=== PATIENT | male | born 1940 | race Caucasian/White ===

== ENCOUNTER 2016-06-07 10:37 | Observation (INO) | payer MEDICARE, OTHER ==
[2016-06-07 10:37] VITALS: BMI 24.2
[2016-06-07] MEDS ORDERED: Sodium Chloride 0.9% 1,000 ML IV STA (10:56)
--- NOTE | 2016-06-07 10:58 | C.PDOC ---
History Of Present Illness 76 y/o M c PMHx DM, HTN p/w diarrhea x 3 days. He reports a small amount of vomit once yesterday. He denies fever, chills, chest pain, palpitations, dyspnea , dizziness, abdominal pain, bleeding, dysuria. Time Seen by Provider: 06/07/16 10:50 Chief Complaint (Nursing): Abdominal Pain Past Medical History Vital Signs: Last Vital Signs Temp 97.9 F 06/07/16 10:43 Pulse 117 H 06/07/16 10:43 Resp 18 06/07/16 10:43 BP 161/87 H 06/07/16 10:43 Pulse Ox 96 06/07/16 12:03 - Medical History PMH: Anxiety, Arthritis, Asthma, COPD, Diabetes, Emphysema, Gastritis, HTN Denies: Chronic Kidney Disease - [facility] Procedures ASSISTANCE WITH RESPIRATORY VENTILATION, 24-96 HRS, CPAP (02/13/15) CORONAR ARTERIOGR-2 CATH (06/08/14) INSERTION OF ONE VASCULAR STENT (06/08/14) INSRT OF DRUG-ELUTING CORON ARTERY STENTS(S) (06/08/14) LEFT HEART CARDIAC CATH (06/08/14) LT HEART ANGIOCARDIOGRAM (06/08/14) NON-INVASIVE MECHANICAL VENTILATION (06/07/14) PERCUTANEOUS TRANSLUMINAL CORONARY ANGIOPLASTY [PTCA] (06/08/14) PROCEDURE ON SINGLE VESSEL (06/08/14) Family History: States: Unknown Family Hx - Social History Hx Tobacco Use: No Hx Alcohol Use: Yes (SOCIALLY) Hx Substance Use: No - Immunization History Hx Tetanus Toxoid Vaccination: No Hx Influenza Vaccination: Yes Hx Pneumococcal Vaccination: Yes Review Of Systems Except As Marked, All Systems Reviewed And Found Negative. Constitutional: Negative for: Fever Cardiovascular: Negative for: Chest Pain Physical Exam - Physical Exam Additional Physical Exam Comments: Constitutional: No acute distress. Head: Normocephalic. Atraumatic. Eyes: PERRL. ENT: Dry mucous membranes. Neck: Supple. Cardiovascular: Tachycardic. Radial pulse 2+ bilaterally. Chest: No tenderness. Respiratory: Clear to auscultation bilaterally. GI: Soft. Nontender. Nondistended. Back: No CVA tenderness. Musculoskeletal: No tenderness or swelling of extremities. Skin: No rash. Neurologic: Alert, no focal deficit. ED Course And Treatment - Laboratory Results Result Diagrams: 06/07/16 11:17 06/07/16 11:17 O2 Sat by Pulse Oximetry: 96 Medical Decision Making Medical Decision Making: Will check labs for dehydration or leukocytosis. Will treat with IVF as patient is tachycardic. No history of CHF. Will administer Zofran for nausea/vomiting. Reassessment after treatment. No abdominal pain and no abdominal tenderness. EKG: Sinus tachycardia at [address] elevation. No acute changes. PROCEDURE: CT Abdomen and Pelvis with intravenous contrast HISTORY: diarrhea COMPARISON: None. TECHNIQUE: Axial computed tomographic images were performed through the abdomen and pelvis with the use of intravenous contrast. Subsequently, sagittal and coronal reformatted images were obtained. Radiation dose: Total exam DLP = 767 mGy-cm. This CT exam was performed using one or more of the following dose reduction techniques: Automated exposure control, adjustment of the mA and/or kV according to patient size, and/or use of iterative reconstruction technique. FINDINGS: LOWER THORAX: Atelectasis at the lung bases. Mild nodularity in the lingula. LIVER: Fatty infiltration of the liver. GALLBLADDER AND BILE DUCTS: Distended gallbladder. PANCREAS: Unremarkable. No gross lesion or ductal dilatation. SPLEEN: Unremarkable. ADRENALS: Unremarkable. No mass. KIDNEYS AND URETERS: Unremarkable. No hydronephrosis. No solid mass. VASCULATURE: Unremarkable. No aortic aneurysm. BOWEL: Underdistention and or mild thickening of the stomach. Diffuse mild thickening throughout the colon concerning for a colitis. Clinical correlation. Prominent diverticuli noted at the level of the descending and sigmoid colon. APPENDIX: Mild likely reactive thickening at the proximal appendix. PERITONEUM: Unremarkable. No free fluid. No free air. LYMPH NODES: Unremarkable. No enlarged lymph nodes. BLADDER: Mild nodularity of the anterior midline aspect of the urinary bladder. REPRODUCTIVE: Unremarkable. BONES: Degenerative changes the spine. Prominent posterior disc osteophyte complex at the L4-5 level. OTHER FINDINGS: Calcification and plaque within the aorta and iliac vessels. IMPRESSION: Diffuse mild thickening throughout the colon concerning for a colitis. Clinical correlation. Prominent diverticuli noted at the level of the descending and sigmoid colon. Additional findings as above. Will start patient on cipro and flagyl. HR improved to 101 but still tachycardic with evidence of dehydration. Dr. Marshall accepts patient to observation on medicine construction electrician service. Disposition Discussed With : Micha Marshall Doctor Will See Patient In The: Hospital - Disposition Disposition: HOSPITALIZED Disposition Time: 13:36 Condition: FAIR - Clinical Impression Clinical Impression: Colitis, Dehydration
[2016-06-07] MEDS ORDERED: Sodium Chloride 0.9% 1,000 ML ONE (11:14)
[2016-06-07 11:24] LABS: BASO % 0.3 % (0.0-2.0); EOS # 0.2 K/uL (0.0-0.7); EOS % 1.4 % (0.0-4.0); HEMATOCRIT 41.3 % (35.0-51.0); LYMPH # 1.7 K/uL (1.0-4.3); LYMPH % 13.1 % (20.0-40.0); MEAN CELL VOLUME 91.2 fL (80.0-94.0); MEAN CORPUSCULAR HEMOGLOBIN 30.1 pg (27.0-31.0); MEAN PLATELET VOLUME 8.8 fL (7.2-11.7); MONO # 1.7 K/uL (0.0-0.8); MONO % 13.1 % (0.0-10.0); RED CELL DISTRIBUTION WIDTH 14.6 % (11.5-14.5); WHITE BLOOD COUNT 12.6 K/uL (4.8-10.8)
[2016-06-07 11:34] LABS: RBC URINE < 1 /hpf (0-3); URINE BILIRUBIN NEGATIVE (NEGATIVE); URINE BLOOD NEGATIVE (NEGATIVE); URINE COLOR Yellow (YELLOW); URINE GLUCOSE (UA) NORMAL (Normal); URINE KETONE 1+ mg/dL (NEGATIVE); URINE LEUKOCYTE ESTERASE NEG Leu/uL (Negative); URINE PROTEIN NEGATIVE (NEGATIVE); URINE UROBILINOGEN NORMAL mg/dL (0.2-1.0); WBC URINE 1 /hpf (0-5)
[2016-06-07 11:39] LABS: CHLORIDE 102 mmol/L (98-107); POTASSIUM 3.7 mmol/L (3.6-5.2); SODIUM 135 mmol/L (132-148)
[2016-06-07 11:41] LABS: ALB/GLOB RATIO 1.4 (1.0-2.1); ALKALINE PHOSPHATASE 151 U/L (38-126); AST/SGOT 26 U/L (17-59); BILIRUBIN,TOTAL 1.1 mg/dL (0.2-1.3); BLOOD UREA NITROGEN 17 mg/dL (9-20); CARBON DIOXIDE 20 mmol/L (22-30); GFR AFRICAN-AMERICAN > 60; TOTAL PROTEIN 6.6 g/dL (6.3-8.3)
[2016-06-07 11:42] LABS: ALT/SGPT 25 U/L (21-72); CALCIUM 8.8 mg/dl (8.6-10.4); GLUCOSE,RANDOM 174 mg/dL (75-110)
[2016-06-07] MEDS ORDERED: Iodixanol 320 MG/ML 100 ML BOTTLE IV ONE (12:02)
--- NOTE | 2016-06-07 13:28 | CT ---
PROCEDURE: CT Abdomen and Pelvis with intravenous contrast HISTORY: diarrhea, vomiting COMPARISON: None. TECHNIQUE: Axial computed tomographic images were performed through the abdomen and pelvis with the use of intravenous contrast. Subsequently, sagittal and coronal reformatted images were obtained. Radiation dose: Total exam DLP = 767 mGy-cm. This CT exam was performed using one or more of the following dose reduction techniques: Automated exposure control, adjustment of the mA and/or kV according to patient size, and/or use of iterative reconstruction technique. FINDINGS: LOWER THORAX: Atelectasis at the lung bases. Mild nodularity in the lingula. LIVER: Fatty infiltration of the liver. GALLBLADDER AND BILE DUCTS: Distended gallbladder. PANCREAS: Unremarkable. No gross lesion or ductal dilatation. SPLEEN: Unremarkable. ADRENALS: Unremarkable. No mass. KIDNEYS AND URETERS: Unremarkable. No hydronephrosis. No solid mass. VASCULATURE: Unremarkable. No aortic aneurysm. BOWEL: Underdistention and or mild thickening of the stomach. Diffuse mild thickening throughout the colon concerning for a colitis. Clinical correlation. Prominent diverticuli noted at the level of the descending and sigmoid colon. APPENDIX: Mild likely reactive thickening at the proximal appendix. PERITONEUM: Unremarkable. No free fluid. No free air. LYMPH NODES: Unremarkable. No enlarged lymph nodes. BLADDER: Mild nodularity of the anterior midline aspect of the urinary bladder. REPRODUCTIVE: Unremarkable. BONES: Degenerative changes the spine. Prominent posterior disc osteophyte complex at the L4-5 level. OTHER FINDINGS: Calcification and plaque within the aorta and iliac vessels. IMPRESSION: Diffuse mild thickening throughout the colon concerning for a colitis. Clinical correlation. Prominent diverticuli noted at the level of the descending and sigmoid colon. Additional findings as above.
[2016-06-07] MEDS ORDERED: metroNIDAZOLE IV 500 mg/100 ml 100 ML IVPB STA (13:40)
[2016-06-07] MEDS ORDERED: Ciprofloxacin 400mg/200ml D5W 200 ML IVPB STA (13:40)
[2016-06-07] MEDS ORDERED: Ciprofloxacin 400mg/200ml D5W 200 ML IVPB ONE (14:48)
[2016-06-07] MEDS ORDERED: metroNIDAZOLE IV 500 mg/100 ml 100 ML ONE (14:49)
[2016-06-07] MEDS ORDERED: Ciprofloxacin 400mg/200ml D5W 200 ML IVPB SCH (15:00)
--- NOTE | 2016-06-07 15:00 | CP.PCM.HP ---
History of Present Illness - History of Present Illness History of Present Illness: 76 year old male with past medical histories of diabetes mellitus, hypertension present with diarrhea since 3 days. he reports a small amount of vomiting once yesterday. He denies fever, chills, chest pain, palpitations, dyspnea, dizziness, abdominal pain, bleeding, dysuria Present on Admission - Present on Admission Any Indicators Present on Admission: No Past Patient History - Infectious Disease Hx of Infectious Diseases: None - Tetanus Immunizations Tetanus Immunization: Unknown - Past Medical History & Family History Past Medical History?: Yes - Past Social History Smoking Status: Former Smoker - CARDIAC Hx Hypertension: Yes - PULMONARY Hx Asthma: Yes Hx Chronic Obstructive Pulmonary Disease (COPD): Yes Hx Emphysema: Yes - NEUROLOGICAL Hx Neurological Disorder: No - HEENT Hx HEENT Problems: No - RENAL Hx Chronic Kidney Disease: No - ENDOCRINE/METABOLIC Hx Endocrine Disorders: Yes Hx Diabetes Mellitus Type 1: Yes - HEMATOLOGICAL/ONCOLOGICAL Hx Blood Disorders: No - INTEGUMENTARY Hx Dermatological Problems: No - MUSCULOSKELETAL/RHEUMATOLOGICAL Hx Arthritis: Yes - GASTROINTESTINAL Hx Gastritis: Yes - GENITOURINARY/GYNECOLOGICAL Hx Genitourinary Disorders: No - PSYCHIATRIC Hx Anxiety: Yes Hx Substance Use: No - SURGICAL HISTORY Hx Surgeries: Yes Hx Amputation: Yes (right middle finger amputaion after a work related accident) Hx Cardiac Catheterization: Yes - ANESTHESIA Hx Anesthesia: Yes Hx Anesthesia Reactions: No Meds Allergies/Adverse Reactions: Allergies Allergy/AdvReac Type Severity Reaction Status Date / Time No Known Allergies Allergy Verified 06/07/16 10:42 Physical Exam - Constitutional Appears: Well - Head Exam Head Exam: ATRAUMATIC, NORMAL INSPECTION, NORMOCEPHALIC - Eye Exam Eye Exam: EOMI, Normal appearance, PERRL Pupil Exam: NORMAL ACCOMODATION, PERRL - ENT Exam ENT Exam: Mucous Membranes Moist, Normal Exam - Neck Exam Neck exam: Positive for: Normal Inspection - Respiratory Exam Respiratory Exam: Clear to Auscultation Bilateral, NORMAL BREATHING PATTERN - Cardiovascular Exam Cardiovascular Exam: REGULAR RHYTHM - Rectal Exam Rectal Exam: NORMAL INSPECTION Results - Vital Signs Recent Vital Signs: Last Vital Signs Temp 98.9 F 06/07/16 14:45 Pulse 85 06/07/16 14:45 Resp 20 06/07/16 14:45 BP 137/76 06/07/16 14:45 Pulse Ox 96 04/09/17 14:45 - Labs Result Diagrams: 06/08/16 11:27 06/08/16 11:27 Assessment & Plan - Assessment and Plan (Free Text) Plan: protonix pvenox ivf encourage po fluid stool work up gi consult ciproivpb flagl ivpb lane as ordereds/p ct suggestive of colitis
[2016-06-07] MEDS: (Novolin 70/30) NPH/Regular 70/30 Units/ml 10 ml vial SC SCH (22:35)
[2016-06-07] MEDS: metroNIDAZOLE IV 500 mg/100 ml 100 ML IVPB SCH (22:39)
[2016-06-08] MEDS ORDERED: Moxifloxacin IV 400mg/250ml NS 250 ML IVPB SCH
[2016-06-08 00:26] VITALS: RESP 20; O2SAT 95
[2016-06-08] MEDS: metroNIDAZOLE IV 500 mg/100 ml 100 ML IVPB SCH ×2 (06:02→14:25)
--- NOTE | 2016-06-08 08:24 | CP.PCM.CON ---
<Doug Evangelista - Last Filed: 06/08/16 09:53> History of Present Illness - History of Present Illness History of Present Illness: PGY4 GI Fellow Consult Note Patient is a 76yo male with PMHx significant for COPD (with frequent exacerbations), DM, HTN, CAD s/p PCI with ANDRES who presented to the ED with complaint of abdominal pain, diarrhea and vomiting. He states that on Wednesday, he suddenly developed one episode of watery stool. This continued with a maximum of two episodes per day up until yesterday morning. When he developed cramping abdominal pain, became nauseated and vomited (bilious, nonbloody), he decided to come to the ED for further evaluation. Currently, he is eating breakfast and has no complaints, stating he is feeling much better today. He denies any recent travel or sick contacts. Does admit to antibiotic use 3 months ago and most recent hospitalization was about 6 months ago for COPD/ diarrheal illness. He has never had C diff colitis in the past. PMHx: See HPI PSHx: PCI with ANDRES to diagonal, right third finger partial amputation following work accident FHx: Mom - CAD/MA Social: Denies current tobacco (10 pack year history), EtOH or illicit drug use Endo: No prior evaluation Review of Systems - Constitutional Constitutional: absent: Anorexia, Chills, Fever - EENT Eyes: absent: Change in Vision Nose/Mouth/Throat: absent: Sore Throat - Cardiovascular Cardiovascular: absent: Chest Pain, Dyspnea, Edema - Respiratory Respiratory: absent: Cough, Dyspnea, Excessive Mucous Production - Gastrointestinal Gastrointestinal: Cramping, Diarrhea, Loose Stools. absent: Abdominal Pain, Bloating, Constipation, Dyspepsia, Dysphagia, Heartburn, Hematemesis, Hematochezia, Nausea, Vomiting - Genitourinary Genitourinary: absent: Dysuria, Urinary Frequency, Urinary Urgency - Musculoskeletal Musculoskeletal: absent: Back Pain, Neck Pain - Integumentary Integumentary: absent: New Lesions, Rash - Neurological Neurological: absent: Dizziness, Numbness, Focal Weakness - Psychiatric Psychiatric: absent: Anxiety, Depression - Endocrine Endocrine: absent: Polydipsia, Polyphagia, Polyuria - Hematologic/Lymphatic Hematologic: absent: Easy Bleeding, Easy Bruising, Lymphadenopathy Past Patient History - Infectious Disease Hx of Infectious Diseases: None - Tetanus Immunizations Tetanus Immunization: Unknown - Past Medical History & Family History Past Medical History?: Yes - Past Social History Smoking Status: Former Smoker - CARDIAC Hx Hypertension: Yes - PULMONARY Hx Asthma: Yes Hx Chronic Obstructive Pulmonary Disease (COPD): Yes Hx Emphysema: Yes - NEUROLOGICAL Hx Neurological Disorder: No - HEENT Hx HEENT Problems: No - RENAL Hx Chronic Kidney Disease: No - ENDOCRINE/METABOLIC Hx Endocrine Disorders: Yes Hx Diabetes Mellitus Type 2: Yes - HEMATOLOGICAL/ONCOLOGICAL Hx Blood Disorders: No - INTEGUMENTARY Hx Dermatological Problems: No - MUSCULOSKELETAL/RHEUMATOLOGICAL Hx Falls: No - GASTROINTESTINAL Hx Diarrhea: Yes Hx Gastritis: Yes Hx Nausea: Yes Hx Vomiting: Yes - GENITOURINARY/GYNECOLOGICAL Hx Genitourinary Disorders: No - PSYCHIATRIC Hx Substance Use: No - SURGICAL HISTORY Hx Surgeries: Yes Hx Amputation: Yes (right middle finger amputaion after a work related accident) Hx Cardiac Catheterization: Yes Hx Coronary Stent: Yes Other/Comment: ptca 06/08/14 - ANESTHESIA Hx Anesthesia: Yes Hx Anesthesia Reactions: No Hx Malignant Hyperthermia: No Has any member of the family had a problem w/ anesthesia?: No Meds Allergies/Adverse Reactions: Allergies Allergy/AdvReac Type Severity Reaction Status Date / Time No Known Allergies Allergy Verified 06/07/16 10:42 - Medications Medications: Current Medications Enoxaparin Sodium (Lovenox) 30 mg SC DAILY [facility] Metronidazole (Flagyl) 100 mls @ 100 mls/hr IVPB Q8 [facility] Last Admin: 06/08/16 06:02 Dose: 100 mls/hr Moxifloxacin HCl (Avelox Iv 400mg/250ml Ns) 250 mls @ 167 mls/hr IVPB Q24H [facility] Last Admin: 06/08/16 00:05 Dose: 167 mls/hr Insulin Human Isoph/Insulin Regular (Novolin 70/30 (70/30 Units/Ml) 10 Ml) 10 units SC AMHS [facility] Last Admin: 06/07/16 22:35 Dose: 10 units Insulin Human Isoph/Insulin Regular (Novolin 70/30 (70/30 Units/Ml) 10 Ml) 20 units SC QAM [facility] Lisinopril (Zestril) 10 mg PO DAILY [facility] Pantoprazole Sodium (Protonix Ec Tab) 40 mg PO DAILY [facility] Theophylline (Eduard-24) 400 mg PO DAILY [facility] Physical Exam - Constitutional Appears: Non-toxic, No Acute Distress - Eye Exam Eye Exam: EOMI, PERRL - ENT Exam ENT Exam: Mucous Membranes Moist - Respiratory Exam Respiratory Exam: Clear to Auscultation Bilateral. absent: Rales, Rhonchi, Wheezes - Cardiovascular Exam Cardiovascular Exam: RRR, +S1, +S2 - GI/Abdominal Exam GI & Abdominal Exam: Normal Bowel Sounds, Soft. absent: Distended, Firm, Guarding, Rigid, Tenderness - Extremities Exam Extremities exam: Positive for: normal inspection. Negative for: pedal edema - Neurological Exam Neurological exam: Alert, Oriented x3 - Psychiatric Exam Psychiatric exam: Normal Affect, Normal Mood Results - Vital Signs Recent Vital Signs: Last Vital Signs Temp 98.4 F 06/08/16 00:22 Pulse 82 06/08/16 00:22 Resp 20 06/08/16 00:22 BP 117/76 06/08/16 00:22 Pulse Ox 95 06/08/16 00:22 - Labs Result Diagrams: 06/07/16 11:17 06/07/16 11:17 Labs: Laboratory Results - last 24 hr 06/07/16 06/08/16 22:23 07:24 POC Glucose (mg/dL) 135 H 134 H Assessment & Plan - Assessment and Plan (Free Text) Assessment: Patient is a 76yo male with PMHx significant for COPD (with frequent exacerbations), DM, HTN, CAD s/p PCI with ANDRES who presented to the ED with complaint of abdominal pain, diarrhea and vomiting. -Acute diarrheal illness; question of mild colitis on CT imaging (no PO contrast used) -CAD s/p ANDRES to diagonal -COPD -DM -HTN Plan: -Patient asymptomatic at present and denies any diarrhea since admission -Tolerating diet without issue -No nausea, vomiting; antiemetics PRN -AM lab work ordered, pending -Colitis noted on CT though performed without PO, possibly underdistention -Suspect acute viral illness given rapid presentation and resolution -Given history of recurrent non-infectious colitis, consider ischemic colitis -Patient has never had screening colonoscopy; encourage outpatient follow up -Continue supportive care, OK to D/C from GI standpoint - Date & Time Date: 06/08/16 Time: 08:10 <Pop Belcher MD - Last Filed: 06/08/16 11:13> Meds - Medications Medications: Current Medications Enoxaparin Sodium (Lovenox) 30 mg SC DAILY [facility] Metronidazole (Flagyl) 100 mls @ 100 mls/hr IVPB Q8 [facility] Last Admin: 06/08/16 06:02 Dose: 100 mls/hr Moxifloxacin HCl (Avelox Iv 400mg/250ml Ns) 250 mls @ 167 mls/hr IVPB Q24H [facility] Last Admin: 06/08/16 00:05 Dose: 167 mls/hr Insulin Human Isoph/Insulin Regular (Novolin 70/30 (70/30 Units/Ml) 10 Ml) 10 units SC AMHS [facility] Last Admin: 06/07/16 22:35 Dose: 10 units Insulin Human Isoph/Insulin Regular (Novolin 70/30 (70/30 Units/Ml) 10 Ml) 20 units SC QAM [facility] Lisinopril (Zestril) 10 mg PO DAILY [facility] Pantoprazole Sodium (Protonix Ec Tab) 40 mg PO DAILY [facility] Theophylline (Eduard-24) 400 mg PO DAILY [facility] Results - Vital Signs Recent Vital Signs: Last Vital Signs Temp 98.4 F 06/08/16 00:22 Pulse 82 06/08/16 00:22 Resp 20 06/08/16 00:22 BP 117/76 06/08/16 00:22 Pulse Ox 95 06/08/16 00:22 - Labs Result Diagrams: 06/07/16 11:17 06/07/16 11:17 Labs: Laboratory Results - last 24 hr 06/07/16 06/08/16 22:23 07:24 POC Glucose (mg/dL) 135 H 134 H Attending/Attestation - Attestation I have personally seen and examined this patient.: Yes I have fully participated in the care of the patient.: Yes I have reviewed all pertinent clinical information: Yes Notes (Text): 06/08/16 11:12 Patient seen and examined with GI fellow on rounds. This is a 76yo male with PMHx significant for COPD (with frequent exacerbations), DM, HTN, CAD s/p PCI with ANDRES who presented to the ED with complaint of abdominal pain, diarrhea and vomiting. with mild colitis on CT imaging with no s/s of sepsis or SIRS. Tolerating full solid meals with no symptoms. Can be discharged to home with outpatient follow up with me in 3-4 weeks. Will benefit from outpatient colonoscopy.
[2016-06-08] MEDS ORDERED: Pantoprazole 40 mg EC Tab PO SCH (10:00)
[2016-06-08] MEDS ORDERED: (Novolin 70/30) NPH/Regular 70/30 Units/ml 10 ml vial SC SCH (10:00)
[2016-06-08] MEDS ORDERED: Enoxaparin 30 mg Syringe SC SCH (10:00)
[2016-06-08] MEDS ORDERED: Theophylline 200mg ER 24 hrs Cap PO SCH (10:00)
[2016-06-08 11:38] LABS: BASO % 0.5 % (0.0-2.0); EOS # 0.1 K/uL (0.0-0.7); EOS % 1.5 % (0.0-4.0); HEMATOCRIT 40.6 % (35.0-51.0); LYMPH # 1.4 K/uL (1.0-4.3); MEAN CELL VOLUME 91.5 fL (80.0-94.0); MEAN CORPUSCULAR HEMOGLOBIN 30.3 pg (27.0-31.0); MEAN CORPUSCULAR HGB CONC 33.1 g/dL (33.0-37.0); MONO % 9.7 % (0.0-10.0); PLATELET COUNT 312 K/uL (130-400); RED CELL DISTRIBUTION WIDTH 14.6 % (11.5-14.5)
[2016-06-08] MEDS: (Novolin 70/30) NPH/Regular 70/30 Units/ml 10 ml vial SC SCH (11:40)
[2016-06-08 12:02] LABS: CHLORIDE 100 mmol/L (98-107); SODIUM 138 mmol/L (132-148)
[2016-06-08 12:03] LABS: POTASSIUM 3.9 mmol/L (3.6-5.2)
[2016-06-08 12:04] LABS: GFR AFRICAN-AMERICAN > 60
[2016-06-08 12:05] LABS: ALB/GLOB RATIO 1.4 (1.0-2.1); ALKALINE PHOSPHATASE 135 U/L (38-126); ALT/SGPT 27 U/L (21-72); AST/SGOT 23 U/L (17-59); BILIRUBIN,TOTAL 0.5 mg/dL (0.2-1.3); BLOOD UREA NITROGEN 11 mg/dL (9-20); CARBON DIOXIDE 22 mmol/L (22-30); GLUCOSE,RANDOM 242 mg/dL (75-110); TOTAL PROTEIN 6.4 g/dL (6.3-8.3)
[2016-06-08 12:06] LABS: CALCIUM 9.1 mg/dl (8.6-10.4)
[2016-06-08 12:08] LABS: EOSINOPHIL 1 % (0-4); NEUTROPHIL 71 % (50-75); REACTIVE LYMPHOCYTES 1 % (0-0); TOTAL CELLS COUNTED 100
--- NOTE | 2016-06-08 14:35 | CP.PCM.PN ---
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 denies any fever, chills, cough, congestion Patient asymptomatic at present and denies any diarrhea since admission. GI seen and cleared patient for discharge home from GI standpoint and f/u out pt follow up seen by Dr. Dm duff cleared for discharge home today and f/u with PMD discharge instructions discussed with patient ,w eliot understands and agrees with plan Pt instructed to returns to ED if symptoms returns Objective - Vital Signs/Intake and Output Vital Signs (last 24 hours): Temp Pulse Resp BP Pulse Ox 98.4 F 82 20 117/76 95 06/08/16 00:22 06/08/16 00:22 06/08/16 00:22 06/08/16 00:22 06/08/16 00:22 Intake and Output: 06/08/16 06/08/16 06:59 18:59 Intake Total 500 Balance 500 - Medications Medications: Current Medications Enoxaparin Sodium (Lovenox) 30 mg SC DAILY [facility] Last Admin: 06/08/16 11:14 Dose: 30 mg Metronidazole (Flagyl) 100 mls @ 100 mls/hr IVPB Q8 [facility] Last Admin: 06/08/16 14:25 Dose: 100 mls/hr Moxifloxacin HCl (Avelox Iv 400mg/250ml Ns) 250 mls @ 167 mls/hr IVPB Q24H [facility] Last Admin: 06/08/16 00:05 Dose: 167 mls/hr Insulin Human Isoph/Insulin Regular (Novolin 70/30 (70/30 Units/Ml) 10 Ml) 10 units SC AMHS [facility] Last Admin: 06/08/16 11:40 Dose: Not Given Insulin Human Isoph/Insulin Regular (Novolin 70/30 (70/30 Units/Ml) 10 Ml) 20 units SC QAM [facility] Last Admin: 06/08/16 11:41 Dose: Not Given Lisinopril (Zestril) 10 mg PO DAILY [facility] Last Admin: 06/08/16 11:14 Dose: 10 mg Pantoprazole Sodium (Protonix Ec Tab) 40 mg PO DAILY [facility] Last Admin: 06/08/16 11:14 Dose: 40 mg Theophylline (Eduard-24) 400 mg PO DAILY [facility] Last Admin: 06/08/16 11:42 Dose: 400 mg - Labs Labs: 06/08/16 11:27 06/08/16 11:27
[2016-06-08 16:15] VITALS: BP 153/66
[2016-06-08 16:26] VITALS: PULSE 85; TEMP 98.6
--- NOTE | 2016-06-08 18:41 | CARD ---
APPROVED REPORT EKG Measurement Heart [id number] <Conclusion> Sinus tachycardia Otherwise normal ECG
--- NOTE | 2016-06-08 18:43 | CP.PCM.PN ---
Subjective - Date & Time of Evaluation Date of Evaluation: 06/08/16 Time of Evaluation: 11:40 - Subjective Subjective: pt. is stable tolerating solid diet well Objective - Vital Signs/Intake and Output Vital Signs (last 24 hours): Temp Pulse Resp BP Pulse Ox 98.6 F 85 20 153/66 H 95 06/08/16 16:00 06/08/16 16:00 06/08/16 16:00 06/08/16 16:14 06/08/16 16:00 Intake and Output: 06/08/16 06/08/16 06:59 18:59 Intake Total 500 550 Balance 500 550 - Medications Medications: Current Medications Enoxaparin Sodium (Lovenox) 30 mg SC DAILY [facility] Last Admin: 06/08/16 11:14 Dose: 30 mg Metronidazole (Flagyl) 100 mls @ 100 mls/hr IVPB Q8 [facility] Last Admin: 06/08/16 14:25 Dose: 100 mls/hr Moxifloxacin HCl (Avelox Iv 400mg/250ml Ns) 250 mls @ 167 mls/hr IVPB Q24H [facility] Last Admin: 06/08/16 00:05 Dose: 167 mls/hr Insulin Human Isoph/Insulin Regular (Novolin 70/30 (70/30 Units/Ml) 10 Ml) 10 units SC AMHS [facility] Last Admin: 06/08/16 11:40 Dose: Not Given Insulin Human Isoph/Insulin Regular (Novolin 70/30 (70/30 Units/Ml) 10 Ml) 20 units SC QAM [facility] Last Admin: 06/08/16 11:41 Dose: Not Given Lisinopril (Zestril) 10 mg PO DAILY [facility] Last Admin: 06/08/16 11:14 Dose: 10 mg Pantoprazole Sodium (Protonix Ec Tab) 40 mg PO DAILY [facility] Last Admin: 06/08/16 11:14 Dose: 40 mg Theophylline (Eduard-24) 400 mg PO DAILY [facility] Last Admin: 06/08/16 11:42 Dose: 400 mg - Labs Labs: 06/08/16 11:27 06/08/16 11:27 - Constitutional Appears: Well - Head Exam Head Exam: ATRAUMATIC, NORMAL INSPECTION, NORMOCEPHALIC - Eye Exam Eye Exam: EOMI, Normal appearance, PERRL Pupil Exam: NORMAL ACCOMODATION, PERRL - ENT Exam ENT Exam: Mucous Membranes Moist, Normal Exam - Neck Exam Neck Exam: Full ROM, Normal Inspection. absent: Lymphadenopathy - Respiratory Exam Respiratory Exam: Decreased Breath Sounds - Cardiovascular Exam Cardiovascular Exam: REGULAR RHYTHM, +S1, +S2 - GI/Abdominal Exam GI & Abdominal Exam: Soft, Diminished Bowel Sounds - Rectal Exam Rectal Exam: Deferred Assessment and Plan - Assessment and Plan (Free Text) Plan: pt. is ready for discharge f/u at outpatient with Dr. Jean Carlos Camacho in 3-4 week advice to do colonoscopy
== END 2016-06-08 18:30 | disposition home or self-care (01) ==
LOC: C.ER 10:37 → C.9E 13:40 → C.3T 15:55
PROVIDERS: ADMIT Internal Medicine Nephrology; ATTEND Internal Medicine Nephrology
DX: K52.9 Noninfective gastroenteritis and colitis, unspecified (principal); E86.0 Dehydration; E11.9 Type 2 diabetes mellitus without complications; I10 Essential (primary) hypertension; J44.9 Chronic obstructive pulmonary disease, unspecified; Z95.5 Presence of coronary angioplasty implant and graft; Z87.891 Personal history of nicotine dependence; I25.10 Atherosclerotic heart disease of native coronary artery without angina pectoris
CPT/HCPCS: 36415; 74177; 80053; 81001; 82948; 83690; 85025; 87040; 87045; 89055; 93005; 96360; 96365; 96366; 96374; 97110; 97116; 97161; 97530; 99285; G0378; G8978; G8979; G8980; J0744; J1650; J2280; J2405; J7040; Q9967